=== PATIENT | male | born 1955 | race Caucasian/White ===

== ENCOUNTER 2022-08-11 22:55 | Emergency (ER) | payer MEDICAID ==
[~2022-08-11] VITALS: Ht 182.9 cm; Wt 90.9 kg
[2022-08-11 23:01] VITALS: BP 161/93
== END 2022-08-12 01:20 | disposition home or self-care (01) ==
LOC: ER 22:58
DX: M25.561 Pain in right knee (principal); M19.90 Unspecified osteoarthritis, unspecified site; F17.200 Nicotine dependence, unspecified, uncomplicated
CPT/HCPCS: 73564; 99283

== ENCOUNTER 2023-08-07 13:34 | Emergency (ER) | payer OTHER, MEDICAID ==
[~2023-08-07] VITALS: Ht 182.9 cm; Wt 104.0 kg
[2023-08-07] MEDS ORDERED: CEPH-585 PO (14:35)
[2023-08-07 14:57] VITALS: BP 142/96; PULSE 75; RESP 16; TEMP 98; O2SAT 95
--- NOTE | 2023-08-07 15:59 | NUR ---
AGREE WITH OFFICE AUDITOR'S GENERAL ASSESSMENT. PT IN STABLE CONDITION
== END 2023-08-07 16:00 | disposition home or self-care (01) ==
LOC: ER 13:34
DX: S50.862A Insect bite (nonvenomous) of left forearm, initial encounter (principal); R22.32 Localized swelling, mass and lump, left upper limb; M19.90 Unspecified osteoarthritis, unspecified site; W57.XXXA Bitten or stung by nonvenomous insect and other nonvenomous arthropods, initial encounter; Y93.89 Activity, other specified; Y92.89 Other specified places as the place of occurrence of the external cause; Y99.8 Other external cause status
CPT/HCPCS: 99283

== ENCOUNTER 2024-03-22 21:45 | Emergency (ER) | payer BC, MEDICAID, OTHER ==
[~2024-03-22] VITALS: Ht 182.9 cm; Wt 95.2 kg
[~2024-03-22 21:45] MED LIST: CEPH-585 PO
[2024-03-23 12:11] LABS: BASOPHILS % (AUTO) 0.5 % (0-1); EOSINOPHILS % (AUTO) 0.5 % (0-6); HEMATOCRIT 45.4 % (42.0-52.0); HEMOGLOBIN 15.4 g/dl (14.0-17.9); LYMPHOCYTES % (AUTO) 14.9 % (21-51); MEAN CORPUSCULAR HEMOGLOBIN 30.2 PG (27.0-31.0); MEAN CORPUSCULAR HGB CONC 33.9 g/dL (33.0-36.5); MEAN CORPUSCULAR VOLUME 89.2 FL (78-98); MEAN PLATELET VOLUME 7.7 FL (7.4-10.4); MONOCYTES # (AUTO) 0.5 X10'3 (0-0.9); MONOCYTES % (AUTO) 7.8 % (2-12); NEUTROPHILS # (AUTO) 4.9 X10'3 (1.8-7.7); NEUTROPHILS % (AUTO) 76.3 % (42-75); PLATELET COUNT 186 X10'3 (140-440); RED BLOOD COUNT 5.09 X10'6 (4.70-6.10); RED CELL DISTRIBUTION WIDTH 14.1 % (11.5-14.5); WHITE BLOOD COUNT 6.5 X10'3 (4.5-11.0)
[2024-03-23 12:14] VITALS: BP 164/92; PULSE 50; RESP 17; O2SAT 98
[2024-03-23 12:29] LABS: ALBUMIN 4.2 G/DL (3.4-5.0); ANION GAP 4 (8-16); BLOOD UREA NITROGEN 8 MG/DL (7-18); CALCIUM 9.3 MG/DL (8.5-10.1); CHLORIDE 100 MMOL/L (99-107); CREATININE 0.89 MG/DL (0.60-1.10); ETHANOL < 10 MG/DL (<10); GLUCOSE 145 MG/DL (70-104); POTASSIUM 3.8 MMOL/L (3.5-5.1); SODIUM 136 MMOL/L (135-145); TOTAL CARBON DIOXIDE 31.7 MMOL/L (24-32); eCRCL 88 ML/MIN; eGFR 85 ML/MIN
[2024-03-23 12:32] LABS: BILIRUBIN,URINE SMALL (Neg); CLARITY,URINE CLEAR (Clear); COLOR,URINE YELLOW (Yellow); GLUCOSE, URINE NEGATIVE (Neg); KETONES,URINE 15 mg/dl (Neg); LEUKOCYTE ESTERASE ,URINE NEGATIVE (Neg); NITRITES, URINE NEGATIVE (Neg); OCCULT BLOOD,URINE TRACE-INTACT (Neg); PROTEIN,URINE NEGATIVE (Neg); UROBILINOGEN,URINE 0.2 E.U/dL (0.2-1.0)
[2024-03-23 12:35] LABS: UA COLLECTION TYPE CLN CATCH MIDSTREAM
[2024-03-23 12:49] LABS: MUCUS STRANDS MANY /LPF (Neg); SQUAMOUS EPITHELIAL CELL,UR FEW /LPF (FEW)
[2024-03-23 12:56] LABS: WBC,URINE 0-4 /HPF (0-4)
[2024-03-23 13:00] LABS: BACTERIA,URINE NONE SEEN /HPF (Neg)
[2024-03-23 13:06] LABS: URINE AMPHETAMINE SCREEN POSITIVE (Neg); URINE BARBITUATE SCREEN NEGATIVE (Neg); URINE BENZODIAZEPINES SCREEN NEGATIVE (Neg); URINE CANNABINOID SCREEN NEGATIVE (Neg); URINE COCAINE SCREEN NEGATIVE (Neg); URINE METHADONE SCREEN NEGATIVE (Neg); URINE PHENCYCLIDINE SCREEN NEGATIVE (Neg)
[2024-03-23 13:21] LABS: URINE OPIATE SCREEN NEGATIVE (Neg)
[2024-03-23 13:34] VITALS: TEMP 97.7
== END 2024-03-23 13:36 | disposition home or self-care (01) ==
LOC: ER 21:45
DX: F15.23 Other stimulant dependence with withdrawal (principal); M19.90 Unspecified osteoarthritis, unspecified site; F17.200 Nicotine dependence, unspecified, uncomplicated
CPT/HCPCS: 36415; 70450; 71045; 80048; 80305; 80320; 81001; 82948; 84484; 85025; 93005; 99285

== ENCOUNTER 2025-07-03 09:52 | Emergency (ER) | payer BC, MEDICARE ==
[~2025-07-03] VITALS: Ht 182.9 cm; Wt 105.6 kg
[2025-07-03 10:09] VITALS: BP 183/111; PULSE 78; RESP 18; TEMP 97.1; O2SAT 98
[2025-07-03] MEDS ORDERED: MUPI22OI30 TOP (10:49)
--- NOTE | 2025-07-03 10:49 | Physician Documentation ---
History of Present Illness ~ Chief Complaint: Nose Pain Stated Complaint: NOSE PAIN Time Seen by MD: 10:33 Primary Medical Doctor: LEANA CALLAWAY IN [facility] 70-year-old male presents to the ED with a complaint of right-sided nose pain and swelling for the last 2-3 days. States he does not think he was picking his nose, but denies any injury however. stateshis nos painful on inside right. Denies any fevers Medication Reconciliation Allergies: Coded Allergies: No Known Allergies (Unverified , 07/03/25) Scheduled Mupirocin* (Bactroban*), 1 APPLIC TOP Q8H Past Medical History Past Medical History: Arthritis, *PSYCH* Past Surgical History: no surgical history Drug Use: none Lives In: Home Review of Systems All Other Systems at this time: Reviewed and Negative ROS As stated above in the HPI, otherwise all systems are reviewed and negative. Physical Exam Vital Signs: Temperature: 97.1, Source: Temporal, Heart Rate: 78, Respiratory Rate: 18, BP: 183/111, Pulse Oximetry: 98, Weight: 105.600 Physical Exam General: Alert, no apparent distress. HEENT: PERRL, EOMI, no injection, moist mucous membranes. Right Yusef slightly erythematous notable sore on the inside right nare. Psychiatric: Normal mood and affect. Skin: Normal color, warm and dry. No edema, no ecchymosis. Progress Results/Orders Results/Orders Completed Orders - CLAUDIA [facility]O [facility] Mupirocin Nasal Ointment (Bactroban Nasa (07/03/25 10:50) Medications Received in ER Medications (Trade) Dose Ordered Sig/Margarita Route PRN Reason Start Time Stop Time Status Last Admin Dose Admin (Bactroban Nasal Ointment) 1 applic NOW ONCE NS 07/03/25 10:50 07/03/25 10:51 DC 07/03/25 11:01 1 APPLIC Vital Signs 07/03/25 10:09 Temp 97.1 Pulse 78 Resp 18 B/P (MAP) 183/111 Pulse Ox 98 Medical Decision Making Findings Treating patient for a minor cutaneous infection of his right Vivas. Started him on mupirocin. Advised him to follow up with outpatient therapy Departure Disposition: HOME / SELF CARE / HOMELESS Impression: Primary Impression: Disorder of nose Condition: Stable Discharge Instructions: Wound Infection, [id number] Referrals: NO PRIMARY CARE PROVIDER (PCP) Prescriptions Mupirocin* (Bactroban*) 22 Gm Tube 1 APPLIC TOP Q8H for 5 Days, #15 GM apply to affected area(s) Prov: CLAUDIA [facility]O [facility]CH[facility] 07/03/25 Signature Scribe Signature: 7 Attestation: Scribed for Claudia Castillo Driver Trainee by Claudia Castillo - DUONG . 07/03/25 14:46 CLAUDAI CASTILLO NP Jul 03, 2025 10:49
[2025-07-03] MEDS: mupirocin 2% nasal ointment 1gm UD NS ONE (11:01)
== END 2025-07-03 11:08 | disposition home or self-care (01) ==
LOC: ER 09:53
DX: J34.89 Other specified disorders of nose and nasal sinuses (principal); M19.90 Unspecified osteoarthritis, unspecified site
CPT/HCPCS: 99283